=== PATIENT | male | born 1995 | race Two or more races ===

== ENCOUNTER 2022-01-24 18:13 | Emergency (ER) | payer BC, OTHER ==
[~2022-01-24] VITALS: Ht 177.8 cm; Wt 91.1 kg
[2022-01-24 18:46] VITALS: BP 138/83
== END 2022-01-24 20:23 | disposition home or self-care (01) ==
LOC: ER 18:13
DX: S60.011A Contusion of right thumb without damage to nail, initial encounter (principal); F17.210 Nicotine dependence, cigarettes, uncomplicated; W23.0XXA Caught, crushed, jammed, or pinched between moving objects, initial encounter; Y93.89 Activity, other specified; Y92.89 Other specified places as the place of occurrence of the external cause; Y99.8 Other external cause status
CPT/HCPCS: 73140